=== PATIENT | female | born 1980 | race Caucasian/White ===

== ENCOUNTER 2017-07-29 18:04 | Emergency (ER) | payer OTHER ==
[~2017-07-29] VITALS: Ht 160 cm; Wt 56.7 kg
[~2017-07-29 18:04] MED LIST: ACID CONTROLLER20 MG PO; AZO BLADDER CO300 MG PO; COUMADIN2.5 MG PO; COUMADIN3 MG PO; DAILY VALUE1 EACH PO; FAMOTIDINE20 MG PO; LOVENOX60 MG/0.6 SC; MAALOX ADVANCE1 EACH PO; NOHOMEMEDS; PEPCID20 MG PO; TYLENOL EXTRA500 MG PO; WARFARIN SODIU2.5 MG PO; ZOFRAN4 MG PO
[2017-07-29 19:00] LABS: ADD MIUA? YES; BILIRUBIN NEGATIVE; BLOOD MODERATE; COLOR YELLOW ((YELLOW)); GLUCOSE (STRIP) NEGATIVE; KETONES NEGATIVE; LEUKOCYTES TRACE; NITRITE NEGATIVE; PROTEIN (STRIP) 30; SPECIFIC GRAVITY 1.029 (1.000-1.030); UROBILINOGEN 0.2 MG/DL (0.2-1.0)
[2017-07-29 19:11] LABS: BACTERIA RARE /HPF; EPITHELIAL CELLS 2+ /HPF; MUCUS 3+ /LPF; RED BLOOD CELLS 15-20 /HPF (0-5); UCUL ADDED? YES
[2017-07-29 19:38] LABS: HEMATOCRIT 36.4 % (36.0-46.0); MCHC 33.2 G/DL (30.0-36.0); MCV 87.3 FL (83-99); PLATELET COUNT 195 K/uL (156-360); RBC DIS.WIDTH-CV 12.3 % (11.8-14.6); RBC DIS.WIDTH-SD 39.1 % (39-53); RED BLOOD COUNT 4.17 M/uL (3.80-5.20); WHITE BLOOD COUNT 4.9 K/uL (4.1-10.2)
[2017-07-29 19:48] LABS: CHLORIDE 107 mEq/L (99-109); POTASSIUM 3.6 mEq/L (3.7-5.4); SODIUM 142 mEq/L (136-147)
[2017-07-29 19:51] LABS: GLUCOSE 104 mg/dL (70-99)
[2017-07-29 19:52] LABS: ANION GAP 8 MEQ/L (2-14)
[2017-07-29 19:53] LABS: TOTAL BILIRUBIN 0.3 mg/dL (0.0-1.0)
[2017-07-29 19:54] LABS: ALKALINE PHOSPHATASE 63 IU/L (3-129); GFR ESTIMATE (CALCULATED) > 59 mL/min/
[2017-07-29 19:56] LABS: UREA NITROGEN (BUN) 12 mg/dL (9-23)
[2017-07-29 20:09] LABS: QUANTITATIVE HCG < 4.0 MIU/ML
[2017-07-29 20:49] LABS: INTER. NORMALIZED RATIO 4.3
[2017-07-29] MEDS ORDERED: ZOFRAN4 MG PO (21:56)
[2017-07-29 23:48] VITALS: BP 121/80
== END 2017-07-29 23:48 | disposition home or self-care (01) ==
LOC: EME 18:04
PROVIDERS: Physician Assistant
DX: A74.9 Chlamydial infection, unspecified (principal); R11.0 Nausea; K21.9 Gastro-esophageal reflux disease without esophagitis; Z87.442 Personal history of urinary calculi; Z87.440 Personal history of urinary (tract) infections; Z88.1 Allergy status to other antibiotic agents; Z88.2 Allergy status to sulfonamides
CPT/HCPCS: 80053; 81003; 84702; 85027; 85610; 87086; 99281; 99283; J0696; J2405; J7030

== ENCOUNTER 2017-11-30 01:44 | Emergency (ER) | payer OTHER ==
[~2017-11-30] VITALS: Ht 160 cm; Wt 54.8 kg
[2017-11-30] MEDS ORDERED: AMOXICILLI400 MG/5 M PO (07:11)
[2017-11-30 07:45] VITALS: BP 135/98
== END 2017-11-30 07:45 | disposition home or self-care (01) ==
LOC: EME 01:44
DX: K02.9 Dental caries, unspecified (principal); K08.89 Other specified disorders of teeth and supporting structures; Z87.891 Personal history of nicotine dependence; Z88.5 Allergy status to narcotic agent; Z88.2 Allergy status to sulfonamides; Z88.1 Allergy status to other antibiotic agents; Z91.041 Radiographic dye allergy status; Z88.8 Allergy status to other drugs, medicaments and biological substances
CPT/HCPCS: 99281; 99283

== ENCOUNTER 2018-05-02 20:28 | Emergency (ER) | payer OTHER ==
[~2018-05-02] VITALS: Ht 160 cm; Wt 55.2 kg
[~2018-05-02 20:28] MED LIST changes: +AMOXICILLI400 MG/5 M PO
[2018-05-02 21:34] LABS: APPEARANCE SL.HAZY ((CLEAR)); BILIRUBIN NEGATIVE; BLOOD LARGE; COLOR YELLOW ((YELLOW)); GLUCOSE (STRIP) NEGATIVE; KETONES NEGATIVE; LEUKOCYTES LARGE; NITRITE NEGATIVE; PROTEIN (STRIP) 30; UROBILINOGEN 0.2 MG/DL (0.2-1.0)
[2018-05-02 21:34] LABS: HEMATOCRIT 34.4 % (36.0-46.0); HEMOGLOBIN 11.8 G/DL (11.9-15.5); MCH 29.8 PG (29.0-34.0); MCHC 34.3 G/DL (30.0-36.0); MCV 86.9 FL (83-99); PLATELET COUNT 210 K/uL (156-360); RBC DIS.WIDTH-CV 12.1 % (11.8-14.6); RED BLOOD COUNT 3.96 M/uL (3.80-5.20); WHITE BLOOD COUNT 5.6 K/uL (4.1-10.2)
[2018-05-02 21:42] LABS: BACTERIA RARE /HPF; EPITHELIAL CELLS 1+ /HPF; MUCUS 1+ /LPF; UCUL ADDED? YES
[2018-05-02 21:43] LABS: CHLORIDE 107 mEq/L (99-109); POTASSIUM 3.6 mEq/L (3.7-5.4); SODIUM 142 mEq/L (136-147)
[2018-05-02 21:49] LABS: ALBUMIN 4.5 g/dL (3.2-4.8)
[2018-05-02 21:52] LABS: GLUCOSE 110 mg/dL (70-99); TOTAL PROTEIN 7.3 g/dL (6.4-8.3)
[2018-05-02 21:53] LABS: TOTAL BILIRUBIN 0.3 mg/dL (0.0-1.0)
[2018-05-02 21:55] LABS: ALKALINE PHOSPHATASE 70 IU/L (3-129); CREATININE 0.9 mg/dL (0.6-1.3); GFR ESTIMATE (CALCULATED) > 59 mL/min/
[2018-05-02 21:56] LABS: UREA NITROGEN (BUN) 12 mg/dL (9-23)
[2018-05-02 21:57] LABS: AST (GOT) 18 IU/L (2-34)
[2018-05-02 21:58] LABS: ALT (GPT) 9 IU/L (3-49)
[2018-05-02 22:04] LABS: QUANTITATIVE HCG < 4.0 MIU/ML
[2018-05-02 23:54] LABS: PTT 35.8 SEC (25-37)
[2018-05-03] MEDS ORDERED: NORCO 5/3251 TABLET PO (00:41)
[2018-05-03] MEDS ORDERED: ZOFRAN4 MG PO (00:41)
[2018-05-03] MEDS ORDERED: AZITHROMYC200 MG/5 M PO (00:41)
[2018-05-03 01:00] VITALS: BP 124/84
== END 2018-05-03 01:00 | disposition home or self-care (01) ==
LOC: EME 20:28 → EXP 20:28
PROVIDERS: Emergency Medicine
DX: N30.01 Acute cystitis with hematuria (principal); R11.2 Nausea with vomiting, unspecified; Z86.711 Personal history of pulmonary embolism; Z79.01 Long term (current) use of anticoagulants; D68.2 Hereditary deficiency of other clotting factors; K21.9 Gastro-esophageal reflux disease without esophagitis; Z87.440 Personal history of urinary (tract) infections; Z87.442 Personal history of urinary calculi; Z87.891 Personal history of nicotine dependence; Z88.5 Allergy status to narcotic agent; Z88.2 Allergy status to sulfonamides; Z88.1 Allergy status to other antibiotic agents; Z91.041 Radiographic dye allergy status
CPT/HCPCS: 74176; 80053; 81003; 84702; 85027; 85610; 85730; 87086; 99281; 99285; J1885; J2405; J7030

== ENCOUNTER 2018-05-05 01:47 | Emergency (ER) | payer OTHER ==
[~2018-05-05] VITALS: Ht 160 cm; Wt 56.2 kg
[~2018-05-05 01:47] MED LIST changes: +AZITHROMYC200 MG/5 M PO; +NORCO 5/3251 TABLET PO
[2018-05-05 03:10] LABS: BASOPHIL (%) 0.5 % (0-1); EOSINOPHIL (%) 1.1 % (0-5); EOSINOPHIL COUNT 0.1 K/uL (0-0.3); HEMATOCRIT 31.2 % (36.0-46.0); HEMOGLOBIN 10.7 G/DL (11.9-15.5); IMMATURE GRANULOCYTE (%) 0.3 % (0.0-0.7); LYMPHOCYTE COUNT 1.5 K/uL (1.0-2.8); MCH 29.7 PG (29.0-34.0); MCHC 34.3 G/DL (30.0-36.0); MCV 86.7 FL (83-99); MONOCYTE (%) 4.8 % (3-12); MONOCYTE COUNT 0.4 K/uL (0-0.8); NEUTROPHIL (%) 73.3 % (45-76); NEUTROPHIL COUNT 5.5 K/uL (1.8-6.4); PLATELET COUNT 185 K/uL (156-360); RBC DIS.WIDTH-SD 38.5 % (39-53); WHITE BLOOD COUNT 7.5 K/uL (4.1-10.2)
[2018-05-05 03:20] LABS: CHLORIDE 108 mEq/L (99-109); POTASSIUM 3.3 mEq/L (3.7-5.4); SODIUM 143 mEq/L (136-147)
[2018-05-05 03:21] LABS: APPEARANCE SL.HAZY ((CLEAR)); BILIRUBIN NEGATIVE; BLOOD SMALL; COLOR YELLOW ((YELLOW)); GLUCOSE (STRIP) NEGATIVE; KETONES NEGATIVE; LEUKOCYTES MODERATE; NITRITE NEGATIVE; PROTEIN (STRIP) NEGATIVE; UROBILINOGEN 0.2 MG/DL (0.2-1.0)
[2018-05-05 03:22] LABS: GLUCOSE 106 mg/dL (70-99)
[2018-05-05 03:26] LABS: BACTERIA 1+ /HPF; EPITHELIAL CELLS 2+ /HPF; MUCUS TRACE /LPF; UCUL ADDED? YES
[2018-05-05 03:26] LABS: CREATININE 0.8 mg/dL (0.6-1.3); GFR ESTIMATE (CALCULATED) > 59 mL/min/; UREA NITROGEN (BUN) 8 mg/dL (9-23)
[2018-05-05] MEDS ORDERED: ZOFRAN4 MG PO (05:07)
[2018-05-05 05:18] VITALS: BP 109/70
[2018-05-06] MEDS ORDERED: REGLAN10 MG PO (05:44)
[2018-05-06] MEDS ORDERED: COUMADIN4 MG PO (13:18)
[2018-05-06] MEDS ORDERED: COUMADIN2.5 MG PO (13:19)
== END 2018-05-05 05:21 | disposition home or self-care (01) ==
LOC: EME 01:47
PROVIDERS: Emergency Medicine
DX: R11.2 Nausea with vomiting, unspecified (principal); Z87.440 Personal history of urinary (tract) infections; K21.9 Gastro-esophageal reflux disease without esophagitis; Z87.442 Personal history of urinary calculi; Z87.891 Personal history of nicotine dependence; Z88.2 Allergy status to sulfonamides; Z88.1 Allergy status to other antibiotic agents; Z88.5 Allergy status to narcotic agent; Z91.041 Radiographic dye allergy status
CPT/HCPCS: 80048; 81003; 85025; 87086; 99281; 99284; J2405; J7030

== ENCOUNTER 2018-05-06 01:58 | Emergency (ER) | payer OTHER ==
[~2018-05-06] VITALS: Ht 160 cm; Wt 55.0 kg
[~2018-05-06 01:58] MED LIST changes: -COUMADIN4 MG PO; -REGLAN10 MG PO
[2018-05-06 03:14] LABS: HEMATOCRIT 32.1 % (36.0-46.0); MCH 29.8 PG (29.0-34.0); MCHC 34.3 G/DL (30.0-36.0); PLATELET COUNT 194 K/uL (156-360); RBC DIS.WIDTH-SD 38.6 % (39-53); RED BLOOD COUNT 3.69 M/uL (3.80-5.20); WHITE BLOOD COUNT 4.5 K/uL (4.1-10.2)
[2018-05-06 03:23] LABS: ALBUMIN 4.2 g/dL (3.2-4.8); CHLORIDE 107 mEq/L (99-109); POTASSIUM 3.2 mEq/L (3.7-5.4); SODIUM 142 mEq/L (136-147)
[2018-05-06 03:26] LABS: GLUCOSE 106 mg/dL (70-99); TOTAL PROTEIN 6.8 g/dL (6.4-8.3)
[2018-05-06 03:27] LABS: TOTAL BILIRUBIN 0.3 mg/dL (0.0-1.0)
[2018-05-06 03:29] LABS: ALKALINE PHOSPHATASE 62 IU/L (3-129); CREATININE 0.8 mg/dL (0.6-1.3); GFR ESTIMATE (CALCULATED) > 59 mL/min/
[2018-05-06 03:30] LABS: UREA NITROGEN (BUN) 7 mg/dL (9-23)
[2018-05-06 03:31] LABS: AST (GOT) 15 IU/L (2-34)
[2018-05-06 03:32] LABS: ALT (GPT) 8 IU/L (3-49)
[2018-05-06 03:38] LABS: APPEARANCE CLEAR ((CLEAR)); BILIRUBIN NEGATIVE; BLOOD SMALL; COLOR YELLOW ((YELLOW)); GLUCOSE (STRIP) NEGATIVE; KETONES 5; LEUKOCYTES SMALL; NITRITE NEGATIVE; PROTEIN (STRIP) NEGATIVE; SPECIFIC GRAVITY 1.011 (1.000-1.030); UROBILINOGEN 0.2 MG/DL (0.2-1.0)
[2018-05-06 03:38] LABS: QUANTITATIVE HCG < 4.0 MIU/ML
[2018-05-06 03:43] LABS: BACTERIA NONE SEEN /HPF; EPITHELIAL CELLS 1+ /HPF; MUCUS TRACE /LPF; RED BLOOD CELLS 0-5 /HPF (0-5); UCUL ADDED? NO; WHITE BLOOD CELLS 0-5 /HPF (0-5)
[2018-05-06 03:55] LABS: AMPHETAMINE NEGATIVE (500 ng/mL); BARBITURATES NEGATIVE (200 ng/mL); BENZODIAZEPINES NEGATIVE (150 ng/mL); BUPRENORPHINE NEGATIVE (10 ng/mL); COCAINE NEGATIVE (150 ng/mL); METHADONE NEGATIVE (200 ng/mL); METHAMPHETAMINE NEGATIVE (500 ng/mL); OPIATES (MORPHINE) NEGATIVE (100 ng/mL); OXYCODONE NEGATIVE (100 ng/mL); PHENCYCLIDINE NEGATIVE (25 ng/mL); PROPOXYPHENE NEGATIVE (300 ng/mL); THC CANNABINOIDS NEGATIVE (50 ng/mL); TRICYCLIC ANTIDEPRESSANTS NEGATIVE (300 ng/mL)
[2018-05-06] MEDS ORDERED: REGLAN10 MG PO (05:44)
[2018-05-06 05:54] LABS: SOURCE SWAB
[2018-05-06 06:17] VITALS: BP 133/92
[2018-05-06] MEDS ORDERED: COUMADIN4 MG PO (13:18)
[2018-05-06] MEDS ORDERED: COUMADIN2.5 MG PO (13:19)
== END 2018-05-06 06:19 | disposition home or self-care (01) ==
LOC: EME → EDBD 01:58 → EME 01:58
PROVIDERS: Physician Assistant
DX: R11.2 Nausea with vomiting, unspecified (principal); R25.1 Tremor, unspecified; N26.1 Atrophy of kidney (terminal); Z87.442 Personal history of urinary calculi; Z87.440 Personal history of urinary (tract) infections; Z98.51 Tubal ligation status; Z88.1 Allergy status to other antibiotic agents; Z88.2 Allergy status to sulfonamides; F17.200 Nicotine dependence, unspecified, uncomplicated
CPT/HCPCS: 74177; 80053; 81003; 84702; 85027; 87210; 87491; 87591; J1200; J2765; J2930; J7030

== ENCOUNTER → 2018-05-06 | Outpatient (CLI) | payer OTHER ==
[~2018-05-06] VITALS: Ht 160 cm; Wt 55.0 kg
[~2018-05-06] MED LIST changes: +COUMADIN4 MG PO; +REGLAN10 MG PO
[2018-05-06 13:10] VITALS: BP 121/68
== END | disposition home or self-care (01) ==
LOC: IVINF 12:59
DX: R11.2 Nausea with vomiting, unspecified (principal)
CPT/HCPCS: 96360; 96361; J7030

== ENCOUNTER 2018-07-13 21:01 | Emergency (ER) | payer OTHER ==
[~2018-07-13] VITALS: Ht 160 cm; Wt 54.9 kg
[~2018-07-13 21:01] MED LIST changes: +COUMADIN4 MG PO; +REGLAN10 MG PO
[2018-07-13 22:00] LABS: ALBUMIN 4.5 g/dL (3.2-4.8); CHLORIDE 107 mEq/L (99-109); POTASSIUM 3.5 mEq/L (3.7-5.4); SODIUM 140 mEq/L (136-147)
[2018-07-13 22:02] LABS: GLUCOSE 102 mg/dL (70-99); TOTAL PROTEIN 7.5 g/dL (6.4-8.3)
[2018-07-13 22:04] LABS: TOTAL BILIRUBIN 0.4 mg/dL (0.0-1.0)
[2018-07-13 22:06] LABS: ALKALINE PHOSPHATASE 66 IU/L (3-129); CREATININE 0.8 mg/dL (0.6-1.3); GFR ESTIMATE (CALCULATED) > 59 mL/min/
[2018-07-13 22:07] LABS: AST (GOT) 17 IU/L (2-34); UREA NITROGEN (BUN) 10 mg/dL (9-23)
[2018-07-13 22:09] LABS: ALT (GPT) 9 IU/L (3-49)
[2018-07-13 22:14] LABS: QUANTITATIVE HCG < 4.0 MIU/ML
[2018-07-13 22:21] LABS: HEMATOCRIT 33.1 % (36.0-46.0); HEMOGLOBIN 11.4 G/DL (11.9-15.5); MCH 30.1 PG (29.0-34.0); MCHC 34.4 G/DL (30.0-36.0); MCV 87.3 FL (83-99); RBC DIS.WIDTH-CV 12.1 % (11.8-14.6); RBC DIS.WIDTH-SD 38.8 % (39-53); RED BLOOD COUNT 3.79 M/uL (3.80-5.20); WHITE BLOOD COUNT 7.6 K/uL (4.1-10.2)
[2018-07-13 22:23] LABS: APPEARANCE CLOUDY ((CLEAR)); BILIRUBIN NEGATIVE; BLOOD MODERATE; COLOR YELLOW ((YELLOW)); GLUCOSE (STRIP) NEGATIVE; KETONES NEGATIVE; LEUKOCYTES SMALL; NITRITE NEGATIVE; PROTEIN (STRIP) NEGATIVE; SPECIFIC GRAVITY 1.012 (1.000-1.030); UROBILINOGEN 0.2 MG/DL (0.2-1.0)
[2018-07-13 22:24] LABS: PLATELET COUNT 202 K/uL (156-360)
[2018-07-13 22:34] LABS: PLAT.SUFFICIENCY ADEQUATE
[2018-07-13 22:39] LABS: BACTERIA NONE SEEN /HPF; EPITHELIAL CELLS 2+ /HPF; MUCUS 1+ /LPF; UCUL ADDED? YES
[2018-07-13] MEDS ORDERED: ZOFRAN ODT4 MG PO (22:50)
[2018-07-14 02:34] VITALS: BP 111/65
[2018-07-14] MEDS ORDERED: REGLAN10 MG PO (20:00)
[2018-07-14] MEDS ORDERED: VIBRAMYCIN100 MG PO (20:28)
== END 2018-07-14 02:40 | disposition home or self-care (01) ==
LOC: EME 21:01
DX: K52.9 Noninfective gastroenteritis and colitis, unspecified (principal); K21.9 Gastro-esophageal reflux disease without esophagitis; F17.200 Nicotine dependence, unspecified, uncomplicated; Z87.442 Personal history of urinary calculi; Z79.01 Long term (current) use of anticoagulants; Z88.1 Allergy status to other antibiotic agents; Z88.2 Allergy status to sulfonamides; Z91.041 Radiographic dye allergy status
CPT/HCPCS: 80053; 81003; 84702; 85027; 87086; 99281; 99285; J2405; J7030

== ENCOUNTER 2018-07-14 15:58 | Emergency (ER) | payer OTHER ==
[~2018-07-14] VITALS: Ht 157.5 cm; Wt 56.4 kg
[~2018-07-14 15:58] MED LIST changes: +ZOFRAN ODT4 MG PO
[2018-07-14 17:05] LABS: HEMATOCRIT 31.9 % (36.0-46.0); HEMOGLOBIN 10.9 G/DL (11.9-15.5); MCH 29.5 PG (29.0-34.0); MCHC 34.2 G/DL (30.0-36.0); MCV 86.4 FL (83-99); PLATELET COUNT 179 K/uL (156-360); RBC DIS.WIDTH-CV 12.1 % (11.8-14.6); RBC DIS.WIDTH-SD 38.1 % (39-53); RED BLOOD COUNT 3.69 M/uL (3.80-5.20); WHITE BLOOD COUNT 4.7 K/uL (4.1-10.2)
[2018-07-14 17:23] LABS: ALBUMIN 4.3 g/dL (3.2-4.8); CHLORIDE 110 mEq/L (99-109); POTASSIUM 3.4 mEq/L (3.7-5.4); SODIUM 141 mEq/L (136-147)
[2018-07-14 17:25] LABS: GLUCOSE 101 mg/dL (70-99); TOTAL PROTEIN 7.1 g/dL (6.4-8.3)
[2018-07-14 17:25] LABS: SOURCE SWAB
[2018-07-14 17:26] LABS: INTER. NORMALIZED RATIO 3.4
[2018-07-14 17:29] LABS: ALKALINE PHOSPHATASE 63 IU/L (3-129); CREATININE 0.8 mg/dL (0.6-1.3); GFR ESTIMATE (CALCULATED) > 59 mL/min/; PTT 37.1 SEC (25-37)
[2018-07-14 17:30] LABS: UREA NITROGEN (BUN) 9 mg/dL (9-23)
[2018-07-14 17:31] LABS: AST (GOT) 18 IU/L (2-34)
[2018-07-14 17:32] LABS: ALT (GPT) 9 IU/L (3-49); LIPASE 18 U/L (1.0-51.0)
[2018-07-14 17:34] LABS: TOTAL BILIRUBIN 0.5 mg/dL (0.0-1.0)
[2018-07-14 17:40] LABS: QUANTITATIVE HCG < 4.0 MIU/ML
[2018-07-14 18:48] LABS: APPEARANCE SL.HAZY ((CLEAR)); BILIRUBIN NEGATIVE; BLOOD MODERATE; COLOR YELLOW ((YELLOW)); GLUCOSE (STRIP) NEGATIVE; KETONES 20; LEUKOCYTES TRACE; NITRITE NEGATIVE; PROTEIN (STRIP) 30; SPECIFIC GRAVITY 1.026 (1.000-1.030)
[2018-07-14 18:49] LABS: AMPHETAMINE NEGATIVE (500 ng/mL); BARBITURATES NEGATIVE (200 ng/mL); BENZODIAZEPINES NEGATIVE (150 ng/mL); BUPRENORPHINE NEGATIVE (10 ng/mL); COCAINE NEGATIVE (150 ng/mL); METHADONE NEGATIVE (200 ng/mL); METHAMPHETAMINE NEGATIVE (500 ng/mL); OPIATES (MORPHINE) NEGATIVE (100 ng/mL); OXYCODONE NEGATIVE (100 ng/mL); PHENCYCLIDINE NEGATIVE (25 ng/mL); PROPOXYPHENE NEGATIVE (300 ng/mL); THC CANNABINOIDS NEGATIVE (50 ng/mL); TRICYCLIC ANTIDEPRESSANTS NEGATIVE (300 ng/mL)
[2018-07-14 19:04] LABS: BACTERIA RARE /HPF; EPITHELIAL CELLS 1+ /HPF; MUCUS 2+ /LPF; RED BLOOD CELLS 0-5 /HPF (0-5); UCUL ADDED? NO; WHITE BLOOD CELLS 0-5 /HPF (0-5)
[2018-07-14] MEDS ORDERED: REGLAN10 MG PO (20:00)
[2018-07-14] MEDS ORDERED: VIBRAMYCIN100 MG PO (20:28)
[2018-07-14 21:06] VITALS: BP 125/78
[2018-07-14 21:40] LABS: CANDIDA DNA PROBE NEGATIVE; GARDNERELLA DNA PROBE POSITIVE; TRICHOMONAS DNA PROBE NEGATIVE
== END 2018-07-14 21:07 | disposition home or self-care (01) ==
LOC: EME 15:58
PROVIDERS: Physician Assistant
DX: N72 Inflammatory disease of cervix uteri (principal); R11.2 Nausea with vomiting, unspecified; R10.31 Right lower quadrant pain; R10.32 Left lower quadrant pain; Z11.3 Encounter for screening for infections with a predominantly sexual mode of transmission; N26.1 Atrophy of kidney (terminal); Z91.041 Radiographic dye allergy status; D68.51 Activated protein C resistance; Z86.711 Personal history of pulmonary embolism; Z79.01 Long term (current) use of anticoagulants; Z87.442 Personal history of urinary calculi; Z88.1 Allergy status to other antibiotic agents; Z88.2 Allergy status to sulfonamides; F17.200 Nicotine dependence, unspecified, uncomplicated
CPT/HCPCS: 74177; 80048; 80053; 81003; 83690; 84702; 85027; 85610; 85730; 87210; 87480; 87491; 87510; 87591; 87660; 99281; 99285; J1200; J1885; J2405; J2930; J7030

== ENCOUNTER 2018-07-16 02:25 | Emergency (ER) | payer OTHER ==
[~2018-07-16] VITALS: Ht 160 cm; Wt 54.4 kg
[~2018-07-16 02:25] MED LIST changes: +VIBRAMYCIN100 MG PO
[2018-07-16] MEDS ORDERED: FLAGYL500 MG PO (04:38)
[2018-07-16] MEDS ORDERED: ERY-TAB500 MG PO (04:38)
[2018-07-16] MEDS ORDERED: BENADRYL50 MG PO (04:50)
[2018-07-16] MEDS ORDERED: PREDNISONE20 MG PO (04:50)
[2018-07-16] MEDS ORDERED: ZANTAC300 MG PO (04:50)
[2018-07-16 05:16] VITALS: BP 135/98
== END 2018-07-16 05:17 | disposition home or self-care (01) ==
LOC: EME 02:25
DX: N72 Inflammatory disease of cervix uteri (principal); N76.0 Acute vaginitis; B96.89 Other specified bacterial agents as the cause of diseases classified elsewhere; L27.0 Generalized skin eruption due to drugs and medicaments taken internally; T36.4X5A Adverse effect of tetracyclines, initial encounter; Z87.442 Personal history of urinary calculi; Z87.440 Personal history of urinary (tract) infections; Z88.1 Allergy status to other antibiotic agents; Z88.2 Allergy status to sulfonamides; Z79.01 Long term (current) use of anticoagulants; F17.200 Nicotine dependence, unspecified, uncomplicated
CPT/HCPCS: 99281; 99284; J7512